=== PATIENT | female | born 1970 | race Caucasian/White ===

== ENCOUNTER 2017-06-28 13:02 | Emergency (ER) | payer OTHER ==
[~2017-06-28] VITALS: Ht 160 cm; Wt 113.4 kg
--- NOTE | ~2017-06-28 | CR63 ---
[facility]. [facility] A Service of [facility] & [facility] RADIOLOGY TEXT RESULTS PATIENT: MANNY CHRISTIANSON LOCATION: SED : 74 UNIT #: [id number] AGE: [address]: Anjali Menon APRN SEX: F ORDER DR: [id number] [place] [id number] E MR#: [id number] Acc #: [id number] NAME: MANNY CHRISTIANSON : 1970 SEX: F STUDY DATE/TIME: 06/28/2017 13:28 UNIT: SED ROOM: STUDY DESCRIPTION: CR Chest 2 View Attending Physician: Anjali Menon A.P.R.N. Ordering Physician: Anjali Rasmussen A.P.R.N. Primary Care Physician: John Shields M.D. MEDICAL IMAGING REPORT This report is preliminary unless electronic signature is present. EXAM Two-view chest. INDICATIONS Cough for 1-1/2 weeks. Shortness of air. FINDINGS PA and lateral views of the chest compared to 11/28/2016. The heart and mediastinal contours are normal. Lungs are mildly hyperinflated. No focal consolidation. No pleural effusion. IMPRESSION No acute cardiopulmonary findings. Dictated by... Harshad Baugh M.D. THIS IS AN ELECTRONICALLY VERIFIED REPORT Harshad Baugh M.D. at 06/29/2017 1:26 PM NISA/lanie TD: 06/29/2017 06:54 JOB #: [id number] MEDICAL IMAGING REPORT Page 1 of 1
[~2017-06-28 13:02] MED LIST: ADVAIR 100-501 EAC1 INH; ADVAIR 250-501 EAC1; ADVAIR 250-501 EAC1 INH; ADVAIR 250-501 EACH INH; ADVAIR 2501 DISK W/D PO; ALBUTEROL 0.5ML INH; ALBUTEROL MININEB NEB; ALBUTEROL0.83 MG/ML INH; ALBUTEROL17 GM INH; ALPRAZOLAM PO; AMOXICILLIN875 MG PO; ASPIRIN81 M1 PO; AZULFIDINE PO; BACTRIM DS TABL1 TAB PO; BENTYL20 MG PO; BP MED; DARVOCET-N 1001 TAB PO; DICYCLOMINE HCL20 MG PO; DUONEB 2.5-0.5 M3 ML NEB; EC-NAPROSYN500 MG PO; FLAGYL PO; IBUPROFEN PO; IBUPROFEN600 MG PO; IBUPROFEN800 MG PO; IMODIUM2 MG PO; LEVAQUIN PO; LORTAB 7.5-5001 TAB PO; METHADONE PO; NORCO 7.5/325 T1 TAB PO; OMNICEF PO; PHENERGAN PO; PREDNISONE PO; PREDNISONE5 MG PO; PRILOSEC PO; PRILOSEC20 MG PO; PROTONIX PO; PROVENTIL17 GM IH; ROBITUSSIN A-C S5 ML PO; VICODIN 5/500 T1 TAB PO; VOLTAREN75 MG PO; ZANTAC PO; ZITHROMAX PO; ZITHROMAX1 G/PKT PO; ZOFRAN PO
[2017-06-28] MEDS ORDERED: PHENERGAN25 MG (13:13)
[2017-06-28] MEDS ORDERED: OMEPRAZOLE20 M1 (13:13)
[2017-06-28] MEDS ORDERED: METHADOSE40 M1 PO (13:14)
[2017-06-28] MEDS ORDERED: ADVAIR 100-501 EAC1 (13:14)
[2017-06-28] MEDS ORDERED: ALBUTEROL0.63 MG/3 (13:14)
== END 2017-06-28 14:21 | disposition home or self-care (01) ==
LOC: SED 13:02
DX: J20.9 Acute bronchitis, unspecified (principal); F17.200 Nicotine dependence, unspecified, uncomplicated; J44.9 Chronic obstructive pulmonary disease, unspecified; M41.9 Scoliosis, unspecified; Z98.51 Tubal ligation status; Z90.49 Acquired absence of other specified parts of digestive tract; Z88.8 Allergy status to other drugs, medicaments and biological substances; Z88.6 Allergy status to analgesic agent
CPT/HCPCS: 71020; 99283